=== PATIENT | female | born 1970 | race Hispanic/Latino ===

== ENCOUNTER 2023-11-10 19:06 | Emergency (ER) | payer OTHER ==
[~2023-11-10] VITALS: Ht 154.9 cm; Wt 86.4 kg
[2023-11-10 19:31] LABS: BASOPHILS # (AUTO) 0.04 K/uL (0.00-0.20); BASOPHILS % (AUTO) 0.3 % (0.0-5.0); EOSINOPHILS # (AUTO) 0.02 K/uL (0.00-0.70); EOSINOPHILS % (AUTO) 0.2 % (0.0-8.0); HEMATOCRIT 34.8 % (42-54); IMMATURE GRANULOCYTE ABSOLUTE 0.06 K/uL (0-1); LYMPHOCYTES % (AUTO) 8.5 % (21.0-51.0); MEAN CORPUSCULAR HEMOGLOBIN 24.4 pg (27.0-33.0); MEAN CORPUSCULAR HGB CONC 32.2 g/dL (32.0-36.0); MEAN CORPUSCULAR VOLUME 75.8 fL (79-99); MONOCYTES # (AUTO) 0.4 K/uL (0.1-1.0); MONOCYTES % (AUTO) 3.4 % (3.0-13.0); NEUTROPHILS # (AUTO) 10.5 K/uL (1.8-7.7); NEUTROPHILS % (AUTO) 87.1 % (40.0-77.0); PLATELET COUNT (AUTO) 228 K/uL (130-400); RED BLOOD CELL COUNT(AUTO) 4.59 MIL/uL (4.50-6.20); RED CELL DISTRIBUTION WIDTH 17.1 % (11.0-15.5)
[2023-11-10 19:45] LABS: CREATININE 0.8 mg/dL (0.5-1.0); POTASSIUM 4.1 mmol/L (3.5-5.1)
[2023-11-10 19:49] LABS: ALBUMIN 3.9 g/dL (3.5-5.0); BILIRUBIN,TOTAL 0.2 mg/dL (0.2-1.0); TOTAL PROTEIN, SERUM 8.6 g/dL (6.0-8.3)
[2023-11-10] MEDS ORDERED: IOHEXOL-350 75 ML VIAL IV ONE (20:06)
[2023-11-10] MEDS: 0.9%NACL 1000ML 1,000 ML IV ONE (20:40)
[2023-11-10] MEDS: KETOROLAC 30MG VIAL (30MG/ML) IVP ONE (20:40)
[2023-11-10 21:17] LABS: APPEARANCE,URINE CLEAR (CLEAR); BILIRUBIN,URINE NEGATIVE (NEGATIVE); COLOR,URINE LIGHT-YELLOW (YELLOW); GLUCOSE, URINE (UA) NEGATIVE (NEGATIVE); KETONES,URINE 5 mg/dL (NEGATIVE); LEUKOCYTE ESTERASE ,URINE NEGATIVE Leu/uL (NEGATIVE); NITRATE,URINE NEGATIVE (NEGATIVE); OCCULT BLOOD,URINE MODERATE (NEGATIVE); PROTEIN,URINE 20 mg/dL (NEGATIVE); UROBILINOGEN,URINE 0.2 mg/dL (0.2-1.0)
[2023-11-10] MEDS ORDERED: IBUP-2077 PO (21:17)
[2023-11-10] MEDS ORDERED: TAMS-1 PO (21:17)
[2023-11-10] MEDS ORDERED: AMOX1TAB16 PO (21:17)
[2023-11-10] MEDS ORDERED: PHEN-847 PO (21:17)
[2023-11-10 21:18] LABS: ADD UA MICROSCOPIC YES
[2023-11-10 21:19] LABS: BACTERIA,URINE RARE /HPF (None Seen); MUCUS,URINE RARE LPF (None Seen); RBC,URINE TNTC /HPF (0-1); SQUAMOUS EPITHELIAL CELL,UR MANY /HPF (0-2)
[2023-11-10] MEDS: AMOX/CLAV 875/125MG TAB PO ONE (21:33)
[2023-11-10] MEDS: PHENAZOPYRIDINE HCL 200 MG TABLET PO ONE (21:33)
[2023-11-10] MEDS: TAMSULOSIN HCL 0.4 MG CAP.ER.24H PO ONE (21:33)
[2023-11-10 21:38] VITALS: BP 149/54; PULSE 76; RESP 18; O2SAT 98
== END 2023-11-10 21:41 | disposition home or self-care (01) ==
LOC: EDH 19:06 → EDSEX 19:06 → EDH 21:41
DX: N13.2 Hydronephrosis with renal and ureteral calculous obstruction (principal); R73.9 Hyperglycemia, unspecified
CPT/HCPCS: 99285; 74177; 96374; 96361; 80053; 83690; 85025; 81001; 36415; J7030; J1885; Q9967